=== PATIENT | male | born 1990 | race Caucasian/White ===

== ENCOUNTER 2017-03-17 10:55 | Emergency (ER) | payer BC ==
[~2017-03-17] VITALS: Ht 182.9 cm; Wt 98.0 kg
[2017-03-17 11:00] VITALS: BP 142/85
--- NOTE | 2017-03-17 17:20 | PHYS DOC ---
Past Medical History Past Medical History: No Pertinent History Past Surgical History: Cholecystectomy Alcohol Use: None Drug Use: None Adult General Chief Complaint Chief Complaint: LACERATION/AVULSION HPI HPI Patient is a 26 year old male who presents with a serration to his mid upper forehead that occurred today when he was placing a cooler onto hatchback and it fell open striking his forehead. He denies loss of consciousness, changes in vision, nausea or vomiting. He denies any other injury. Review of Systems Review of Systems Constitutional: Denies fever or chills [] Eyes: Denies change in visual acuity, redness, or eye pain [] Musculoskeletal: Denies back pain or joint pain [] Integument: He history of present illness Neurologic: Denies headache, focal weakness or sensory changes [] Endocrine: Denies polyuria or polydipsia [] All other systems were reviewed and found to be within normal limits, except as documented in this note. Allergies Allergies Allergies Coded Allergies Type Severity Reaction Last Updated Verified No Known Drug Allergies 03/17/17 No Physical Exam Physical Exam Constitutional: Well developed, well nourished, no acute distress, non-toxic appearance. [] Cardiovascular:Heart rate regular rhythm, no murmur [] Lungs & Thorax: Bilateral breath sounds clear to auscultation [] Skin: There is a 0.25 cm laceration to the patient's upper forehead, bleeding is controlled, edges are well approximated Neurologic: Alert and oriented X 3, normal motor function, normal sensory function, no focal deficits noted. [] Psychologic: Affect normal, judgement normal, mood normal. [] Current Patient Data Vital Signs Vital Signs Date Time Temp Pulse Resp B/P (MAP) Pulse Ox O2 Delivery O2 Flow Rate FiO2 03/17/17 11:00 98.3 81 16 99 Room Air 98.3 EKG EKG [] Radiology/Procedures Radiology/Procedures []The wound was closed with Dermabond and Steri-Strips after a thorough cleaning. Patient tolerated the procedure well. He was given instructions on wound care. Course & Med Decision Making Course & Med Decision Making Pertinent Labs and Imaging studies reviewed. (See chart for details) 1. Laceration The patient's wound was closed using Dermabond and Steri-Strips. The patient stated that he understood the wound care instructions. He is to use ibuprofen or Tylenol for pain. He is to return to the ED for any signs of worsening. His tetanus status was up-to-date. Dragon Disclaimer Dragon Disclaimer This electronic medical record was generated, in whole or in part, using a voice recognition dictation system. Departure Departure Impression: Primary Impression: Laceration Disposition: 01 HOME, SELF-CARE Condition: STABLE Patient Instructions: Sterile Tape Wound Closure, Laceration Care, Adult Additional Instructions: Follow-up with your primary care in 1 week if laceration is not healing appropriately. If you have signs of infection please follow-up with your primary care provider or return to the ED. TRISTEN SOUSA [employer] Mar 17, 2017 17:20
== END 2017-03-17 11:53 | disposition home or self-care (01) ==
LOC: ER 10:55
DX: S01.81XA Laceration without foreign body of other part of head, initial encounter (principal); W22.8XXA Striking against or struck by other objects, initial encounter; Y93.89 Activity, other specified; Y92.89 Other specified places as the place of occurrence of the external cause; Y99.8 Other external cause status
CPT/HCPCS: 12011; 99283-25